=== PATIENT | male | born 1985 | race Caucasian/White ===

== ENCOUNTER 2016-08-27 06:07 | Day surgery (SDC) | payer OTHER ==
[~2016-08-27] VITALS: Ht 180.3 cm; Wt 75.8 kg
== END 2016-08-27 11:55 | disposition short-term general hospital (02) ==
LOC: SURGOP 06:07
PROC: 0MM14ZZ Reattachment of Right Shoulder Bursa and Ligament, Percutaneous Endoscopic Approach (ICD-10-PCS; principal; 2016-08-27)
PROC: 0RBJ4ZZ Excision of Right Shoulder Joint, Percutaneous Endoscopic Approach (ICD-10-PCS; 2016-08-27)
DX: S43.401A Unspecified sprain of right shoulder joint, initial encounter (principal); M75.41 Impingement syndrome of right shoulder; M75.51 Bursitis of right shoulder; F17.210 Nicotine dependence, cigarettes, uncomplicated
CPT/HCPCS: C1713; J0171; J0690; J1885; J2250; J2270; J2710; J2795; J3010

== ENCOUNTER → 2016-09-10 | Outpatient (CLI) | payer OTHER | END | disposition short-term general hospital (02) | LOC: CLORTH 09:46 | DX: Z47.89 Encounter for other orthopedic aftercare (principal) ==

== ENCOUNTER → 2016-10-08 | Outpatient (CLI) | payer OTHER | END | disposition short-term general hospital (02) | LOC: CLORTH 03:38 | DX: Z47.89 Encounter for other orthopedic aftercare (principal) ==

== ENCOUNTER → 2016-11-19 | Outpatient (CLI) | payer OTHER | END | disposition short-term general hospital (02) | LOC: CLORTH 02:40 | DX: S43.431D Superior glenoid labrum lesion of right shoulder, subsequent encounter (principal) ==